=== PATIENT | female | born 1975 | race Two or more races ===

== ENCOUNTER 2017-06-18 08:09 | Emergency (ER) | payer MEDICAID, OTHER ==
[~2017-06-18] VITALS: Ht 157.5 cm; Wt 59.2 kg
[2017-06-18 08:13] VITALS: Ht 157.5 cm; Wt 59.2 kg
[2017-06-18] MEDS ORDERED: KETOROLAC 30 MG INJ IM STA (08:28)
--- NOTE | 2017-06-18 08:51 | RADRPT ---
PROCEDURE: XR Chest. CLINICAL INDICATION: Cough and shortness of breath. TECHNIQUE: Single frontal chest x-ray. COMPARISON: None. FINDINGS: The lungs are clear. No focal opacification is seen. The cardiomediastinal silhouette is unremarka ble. The osseous structures are unremarkable. IMPRESSION: 1. There is no acute cardiopulmonary process. RPTAT: PP .Remy Cantrell MD, MD Date Time Electronically viewed and signed by .Remy Cantrell MD, on 06/18/2017 08:50 .B/
--- NOTE | 2017-06-18 09:18 | ERD ---
ER Documentation Chief Complaint Chief Complaint Cough colds and flu symptoms x 3 days HPI Patient is a 42-year-old female presents to ED with concerns of flulike symptoms 2-3 days. Patient denies any fevers. Patient states that she has a dry cough. Patient also reports throat pain and clear rhinorrhea. Patient denies any drooling, trismus or hyperextension of her neck. Patient reports generalized body aches as well as a mild headache. She denies any head trauma. She denies any nausea, vomiting, photophobia, phonophobia, neck pain, neck stiffness or loss of consciousness. Patient denies any chest pain or shortness of breath. Patient denies any abdominal pain or diarrhea. Patient states she tried taking Tylenol yesterday however she did not have any alleviation of her symptoms. Denies receiving the flu vaccine this year. Patient does have sick contact of daughter who had similar symptoms at this time. No recent travel. ROS All systems reviewed and are negative except as per history of present illness. Medications Home Meds Active Scripts Ibuprofen* (Motrin*) 400 Mg Tab, 400 MG PO Q6, #30 TAB Prov:SRINIVAS TOBAR PA-C 06/18/17 Sakhdbrkvhk-Cxdajllfgampg-Sayzugmbirtin (Mucinex Sinus-Max Severe Congestion) 1 Each Tablet, 1 TAB PO BID, #20 TAB Prov:SRINIVAS TOBAR PA-C 06/18/17 Oseltamivir Phosphate* (Tamiflu*) 75 Mg Capsule, 75 MG PO BID for 5 Days, CAP Prov:SRINIVAS TOBAR PA-C 06/18/17 Discontinued Scripts Guaifenesin* (Robitussin*) 100 Mg/5 Ml Syrup, 100 MG PO Q4H Y for COUGH, #1 BOTTLE Prov:SRINIVAS TOBAR PA-C 06/18/17 Acetaminophen* (Tylophen*) 500 Mg Capsule, 1 CAP PO Q6H Y for PAIN AND OR ELEVATED TEMP, #20 CAP Prov:SRINIVAS TOBAR PA-C 06/18/17 Allergies Allergies: Coded Allergies: No Known Allergy (Unverified , 01/23/15) PMhx/Soc History of Surgery: Yes (CHOLECYSTECTOMY) Anesthesia Reaction: No Hx Neurological Disorder: No Hx Respiratory Disorders: Yes Hx Cardiac Disorders: No Hx Psychiatric Problems: No Hx Miscellaneous Medical Probl: Yes (BREAST MASS) Hx Alcohol Use: No Hx Substance Use: No Hx Tobacco Use: No Physical Exam Vitals Vital Signs Date Time Temp Pulse Resp B/P Pulse Ox O2 Delivery O2 Flow Rate FiO2 06/18/17 08:13 98.9 59 20 143/64 98 Physical Exam GENERAL: Well-developed, well-nourished female. Appears in no acute distress. Speaking in full sentences. HEAD: Normocephalic, atraumatic. No deformities or ecchymosis. EYE: Pupils equal, round, and reactive to light. EOMs intact. No conjunctival erythema. No eye discharge. ENT: External ear without any masses or tenderness. Auditory canals clear bilaterally. TM visualized bilaterally, non-erythematous, non-bulging. Nasal mucosa pink with no discharge. Oropharynx is erythematous without any tonsillar erythema or exudates. No uvula deviation. No kissing tonsils. NECK: Supple. No meningismus. Normal ROM of the neck. LUNG: Clear to auscultation bilaterally. No rhonchi, wheezing, rales or coarse breath sounds. HEART: Regular rate and rhythm. No murmurs, rubs or gallops. BACK: No midline tenderness. EXTREMITIES: Equal pulses bilaterally. No peripheral clubbing, cyanosis or edema. No unilateral leg swelling. NEUROLOGIC: Alert and oriented to person, place and time. Moving all four extremities. 5/5 strength in all extremities. Normal speech. Steady gait. SKIN: Normal color. Warm and dry. No rashes or lesions. Results 24 hrs Current Medications Medications (Trade) Dose Ordered Sig/Da Route PRN Reason Start Time Stop Time Status Last Admin Dose Admin Ketorolac Tromethamine (Toradol) 30 mg ONCE STAT IM 06/18/17 08:28 06/18/17 08:30 DC 06/18/17 08:49 Procedures/MDM ED COURSE: The patient was stable throughout ED course. I kept the patient and/or family informed of laboratory and diagnostic imaging results throughout the ED course. DIAGNOSTIC IMAGING: Read by radiologist. DIAGNOSTIC IMAGING REPORT Patient: CHARU JUARES : 1975 Age: 42 Sex: F MR #: [id number] DOS: 06/18/17827 Ordering MD: SRINIVAS TOBAR PA-C Location: [facility] Room/Bed: PROCEDURE: XR Chest. CLINICAL INDICATION: Cough and shortness of breath. TECHNIQUE: Single frontal chest x-ray. COMPARISON: None. FINDINGS: The lungs are clear. No focal opacification is seen. The cardiomediastinal silhouette is unremarkable. The osseous structures are unremarkable. IMPRESSION: 1. There is no acute cardiopulmonary process. RPTAT: PP .Remy Cantrell MD, Date Time Electronically viewed and signed by .Remy Cantrell MD, on 06/18/2017 08:50 .B/ CC: SRINIVAS TOBAR PA-C PROCEDURES: None. MEDICATIONS GIVEN: Toradol Patient tolerated medication well with no adverse reactions. Patient reported improvement in pain. MEDICAL DECISION MAKING: This is a 42-year-old female who presents with dry cough, nasal congestion, sore throat, generalized body aches 2-3 days. Vital signs were reviewed. Patient was afebrile. Patient was not hypoxic. ENT exam was normal. Lung exam is normal. Chest x-ray was unremarkable. Flu swab was positive for influenza A. I explained to the patient that she may benefit from taking Tamiflu given that her symptoms may have started within the last 48 hours. Patient was advised on supportive measures. At this time for the patient's presentation is most consistent with influenza. Low suspicion for pleural effusion, pneumonia, meningitis, sinusitis, otitis externa, acute otitis media, strep pharyngitis, epiglottitis or peritonsillar abscess. Low suspicion for sepsis. Patient was nontoxic, [id number]-bcywgrvec prior to discharge. PRESCRIPTIONS: Ibuprofen, Mucinex, Tamiflu DISCHARGE: At this time, patient is stable for discharge and outpatient management. Supportive therapies such as OTC throat lozenges, salt water gurgles, popsicles and jello discussed. I have instructed the patient to follow-up with his/her primary care physician in 1-2 days. I have instructed the patient to promptly return to the ER for any new or worsening symptoms including increased pain, swelling, fever, nausea, vomiting, weakness or difficulty breathing. The patient and/or family expressed understanding of and agreement with this plan. All questions were answered. Home care instructions were provided. Disclaimer: Inadvertent spelling and grammatical errors are likely due to EHR/ dictation software use and do not reflect on the overall quality of patient care. Also, please note that the electronic time recorded on this note does not necessarily reflect the actual time of the patient encounter. Departure Diagnosis: Primary Impression: Influenza A Condition: Stable Patient Instructions: Influenza (Adult) Referrals: [facility] YOU HAVE RECEIVED A MEDICAL SCREENING EXAM AND THE RESULTS INDICATE THAT YOU DO NOT HAVE A CONDITION THAT REQUIRES URGENT TREATMENT IN THE EMERGENCY DEPARTMENT. FURTHER EVALUATION AND TREATMENT OF YOUR CONDITION CAN WAIT UNTIL YOU ARE SEEN IN YOUR DOCTORS OFFICE WITHIN THE NEXT 1-2 DAYS. IT IS YOUR RESPONSIBILITY TO MAKE AN APPOINTMENT FOR FOLOW-UP CARE. IF YOU HAVE A PRIMARY DOCTOR --you should call your primary doctor and schedule an appointment IF YOU DO NOT HAVE A PRIMARY DOCTOR YOU CAN CALL OUR PHYSICIAN REFERRAL HOTLINE AT IF YOU CAN NOT AFFORD TO SEE A PHYSICIAN YOU CAN CHOSE FROM THE FOLLOWING [facility] [address] [facility] [address]. [facility] [address] [facility] [address] [facility] [address] [facility] [address] [facility]. [facility]. [address] [facility]. [facility] YOU HAVE RECEIVED A MEDICAL SCREENING EXAM AND THE RESULTS INDICATE THAT YOU DO NOT HAVE A CONDITION THAT REQUIRES URGENT TREATMENT IN THE EMERGENCY DEPARTMENT. FURTHER EVALUATION AND TREATMENT OF YOUR CONDITION CAN WAIT UNTIL YOU ARE SEEN IN YOUR DOCTORS OFFICE WITHIN THE NEXT 1-2 DAYS. IT IS YOUR RESPONSIBILITY TO MAKE AN APPOINTMENT FOR FOLOW-UP CARE. IF YOU HAVE A PRIMARY DOCTOR --you should call your primary doctor and schedule and appointment IF YOU DO NOT HAVE A PRIMARY DOCTOR YOU CAN CALL OUR PHYSICIAN REFERRAL HOTLINE AT . IF YOU CAN NOT AFFORD TO SEE A PHYSICIAN YOU CAN CHOSE FROM THE FOLLOWING [facility] INSTITUTIONS: [facility] [address] [place] [address] [facility] [address] [place] [address] [facility] [address] [place] [address] Additional Instructions: Call your primary care doctor TOMORROW for an appointment during the next 1-2 days.See the doctor sooner or return here if your condition worsens before your appointment time. SRINIVAS TOBAR PA-C Jun 18, 2017 09:18
[2017-06-18] MEDS ORDERED: OSLT75C PO (09:26)
[2017-06-18] MEDS ORDERED: ACET500C5 PO (09:26)
[2017-06-18] MEDS ORDERED: GUAI-637 PO (09:27)
[2017-06-18] MEDS ORDERED: GUAI-497 PO (09:28)
[2017-06-18] MEDS ORDERED: IBUP400T22 PO (09:28)
== END 2017-06-18 09:54 | disposition home or self-care (01) ==
LOC: FTE 08:09
DX: J10.1 Influenza due to other identified influenza virus with other respiratory manifestations (principal)
CPT/HCPCS: 71010; 87400; 96372; J1885; Z7502